=== PATIENT | male | born 1985 | race Caucasian/White ===

== ENCOUNTER 2023-08-09 20:04 | Emergency (ER) | payer OTHER, SELFPAY ==
[2023-08-09 20:10] VITALS: BP 143/94
[2023-08-09] MEDS: NSS 1000 IV (20:42)
--- NOTE | 2023-08-09 20:47 | ED.GENMED ---
History of Present Illness
<Sina Selby MD - Last Filed: 08/09/23 20:49>
General
Chief Complaint: Fainting/Passed Out
Source: patient and family
Exam Limitations: none
Time Seen by Provider: 08/09/23 20:29
Travel History
Have you had any contact with someone who has COVID-19?: No
Do you have any symptoms of coronavirus? Fever > 100 degrees, chills, cough, shortness of breath, sore throat, loss of taste or smell, muscle aches, or headache?: No
History of Present Illness
History of Present Illness:
38-year-old male with relatively sudden onset about 2 PM of nausea lightheadedness. Got up from his work chair went to the door felt more nauseous diaphoretic slid down to the floor. He then got up went back to his dad's with a recurrent episode.
No chest pain shortness of breath pleuritic pain no heart racing. Since then he has just felt slightly off generally weak dizzy and lightheaded. Denies other complaints
Past History
<Sina Selby MD - Last Filed: 08/09/23 20:49>
Past History
ED Past Medical History: None
Review of Systems
<Sina Selby MD - Last Filed: 08/09/23 20:49>
Review of Systems
All Other Systems: Not applicable
Constitutional: Denies fever
Respiratory: Denies cough
Cardiac: Denies chest pain or palpitations
Phy Exam
<Sina Selby MD - Last Filed: 08/09/23 20:49>
Physical Exam
Physical Exam:
GENERAL: Alert and oriented in no apparent distress
EYE: Orbits normal.
NECK: Supple, no significant adenopathy.
ENT: Pharynx without erythema
CARDIAC: Regular rate and rhythm without any obvious murmurs.
LUNGS: Clear breath sounds,normal
ABDOMEN: Soft, without focal tenderness or distention
NEUROLOGICAL: Alert and oriented , grossly non-focal
SKIN: Warm and dry, no rash or lesion, no discoloration, skin intact.
MUSCULOSKELETAL: No edema,no deformity.Good color
PSYCH: Normal and appropriate interaction.
Course
<Sina Selby MD - Last Filed: 08/09/23 20:49>
Orders/Labs/Results
Orders:
Orders
08/09/23 20:07
EKG [Electrocardiogram (*1)] Urgent
Reason for Study: Syncope
EKG- Treatment ONCE
08/09/23 20:40
Cardiac Monitoring- Treatment ONCE
IV Insert/Care/Rem.- Treatment PRN
0.9% Sodium Chloride 1000 ml [Nss] 1,000 ml IV BOLUS
08/09/23 20:43
Complete Blood Count/With Diff Urgent
Comprehensive Metabolic Panel Urgent
D-Dimer Urgent
Troponin I Urgent
08/09/23 20:48
CT Head W/o Iv Contrast Urgent
Comment:
Reason For Exam: Dizziness/syncope
08/09/23 21:14
CT Chest Pe Study Urgent
Comment:
Reason For Exam: syncope pos dimer
Abnormal Lab Results
08/09/23
20:43
D-Dimer 0.59 H ug/mlFEU
(0.00-0.50)
Glucose 125 H mg/dl
(70-99)
08/09/23 20:43
08/09/23 20:43
Vital Signs
Initial and Last Documented VS:
Initial Vital Signs
Temp Pulse Resp BP Pulse Ox
97.7 F 106 17 143/94 96
08/09/23 20:10 08/09/23 20:10 08/09/23 20:10 08/09/23 20:10 08/09/23 20:10
Last Documented Vital Signs
Temp Pulse Resp BP Pulse Ox
97.7 F 66 16 119/72 95
08/09/23 20:10 08/09/23 23:52 08/09/23 23:52 08/09/23 23:52 08/09/23 23:52
<Salvatore Dougherty, DO - Last Filed: 08/11/23 22:03>
Orders/Labs/Results
Orders:
Orders
08/09/23 20:07
EKG [Electrocardiogram (*1)] Urgent
Reason for Study: Syncope
EKG- Treatment ONCE
08/09/23 20:40
Cardiac Monitoring- Treatment ONCE
IV Insert/Care/Rem.- Treatment PRN
0.9% Sodium Chloride 1000 ml [Nss] 1,000 ml IV BOLUS
08/09/23 20:43
Complete Blood Count/With Diff Urgent
Comprehensive Metabolic Panel Urgent
D-Dimer Urgent
Troponin I Urgent
08/09/23 20:48
CT Head W/o Iv Contrast Urgent
Comment:
Reason For Exam: Dizziness/syncope
08/09/23 21:14
CT Chest Pe Study Urgent
Comment:
Reason For Exam: syncope pos dimer
Abnormal Lab Results
08/09/23
20:43
D-Dimer 0.59 H ug/mlFEU
(0.00-0.50)
Glucose 125 H mg/dl
(70-99)
08/09/23 20:43
08/09/23 20:43
Vital Signs
Initial and Last Documented VS:
Initial Vital Signs
Temp Pulse Resp BP Pulse Ox
97.7 F 106 17 143/94 96
08/09/23 20:10 08/09/23 20:10 08/09/23 20:10 08/09/23 20:10 08/09/23 20:10
Last Documented Vital Signs
Temp Pulse Resp BP Pulse Ox
97.7 F 66 16 119/72 95
08/09/23 20:10 08/09/23 23:52 08/09/23 23:52 08/09/23 23:52 08/09/23 23:52
<Sina Selby MD - Last Filed: 08/09/23 20:49>
*Pulse Oximetry
Patient hypoxic: no
*EKG
Interpreted by ED Provider?: Yes
Interpretation: normal
Comparison EKG: no comparison EKG present
Heart Rate: 67
Rate: normal
Rhythm: sinus
[place]: normal axis
Interval: normal interval
QRS Pattern: normal QRS
Ischemia: non-specific ST changes
<Salvatore Dougherty DO - Last Filed: 08/11/23 22:03>
*Critical Care Note
Total Time (30-74mins, 75-104mins- exclusive of procedures): Not Applicable
ED Attending Note
<Sina Selby MD - Last Filed: 08/09/23 20:49>
-
Portions of this chart may have been created with voice recognition software.� Occasional wrong word or��sound alike� substitutions may have occurred due to the inherent limitations of voice recognition software.
Discharge Plan
Departure
Patient Disposition: Home (Routine Discharge)
Date of Disposition: 08/09/23
Time of Disposition: 23:45
Patient with high blood pressure during this ER visit?: No
Discharge Problem:
Syncope, Dizziness
Instructions: Syncope (Fainting) (DC), Dizziness, Nonvertigo, (DC)
Referrals:
Melonie Florentino MD [Family Provider] - Follow up in 2-3 days
Interventions
Interventions:
*Risk Screen - Suicide Last Done: 08/09/23 20:10
*General Assessment Last Done: 08/09/23 20:10
*Neglect/Abuse Screening Last Done: 08/09/23 20:10
ED- Fall Risk Assessment Last Done: 08/09/23 23:53
*ED COVID-19 Vaccine History Last Done: 08/09/23 20:10
*Nursing Disposition Last Done: 08/09/23 23:53
ED- Cardiac Assessment Last Done: 08/09/23 22:33
ED- Neurological Assessment Last Done: 08/09/23 22:33
Discharge Date and Time
Discharge Date/Time: 08/10/23 00:02
Print Language: MOROCC[place]
[2023-08-09 20:50] LABS: % Basophils 0.5 % (0-2); % Eosinophils 1.1 % (0-6); % Immature Granulocytes 0.1 % (0-0.5); % Lymphocytes 22.3 % (20.5-51.1); % Monocytes 4.6 % (1.7-9.3); % Neutrophils 71.4 % (42.2-75.2); Absolute Eosinophils 0.1 10^3/uL (0-0.7); Absolute Lymphocytes 1.8 10^3/uL (1.2-3.4); Absolute Monocytes 0.4 10^3/uL (0.1-0.6); Absolute Neutrophils 5.6 10^3/uL (1.4-6.5); Hematocrit 42.7 % (39.0-52.0); Hemoglobin 15.6 g/dL (13.0-18.0); Mean Corp Hgb Conc. 36.5 g/dL (33.0-37.0); Mean Corpuscular Volume 84.7 fL (80.0-94.0); Mean Platelet Volume 8.9 fL (7.4-10.4); Nucleated Red Blood Cells % 0 % (-); Platelet Count 281 10^3/uL (130-400); Red Blood Cell Count 5.04 10^6/uL (4.70-6.10); Red Cell Dist. Width 11.8 % (11.5-14.5); White Blood Cell Count 7.9 10^3/uL (4.8-10.8)
[2023-08-09 21:00] VITALS: BP 120/79
[2023-08-09 21:04] LABS: ALT (SGPT) 43 U/L (0-50); AST (SGOT) 35 U/L (17-59); Albumin 4.8 g/dl (3.5-5.0); Alkaline Phosphatase 81 U/L (38-126); Blood Urea Nitrogen 16 mg/dl (9-20); Calcium 10.1 mg/dl (8.4-10.2); Carbon Dioxide 23 mmol/L (22-30); Chloride 103 mmol/L (98-107); D-Dimer 0.59 ug/mlFEU (0.00-0.50); Glucose 125 mg/dl (70-99); Potassium 4.3 mmol/L (3.5-5.1); Sodium 138 mmol/L (135-145); Total Bilirubin 0.9 mg/dl (0.2-1.3); Total Protein 7.8 g/dl (6.3-8.2); eGFR > 60.00
[2023-08-09 21:14] LABS: Troponin I < 0.012 ng/ml
[2023-08-09 23:00] VITALS: BP 119/72
[2023-08-09 23:52] VITALS: BP 119/72
== END 2023-08-10 00:02 | disposition home or self-care (01) ==
LOC: EMR 20:04
PROVIDERS: EMERGENCY PHYSICIAN Emergency Medicine; FAMILY PHYSICIAN Internal Medicine
DX: R42 Dizziness and giddiness (principal); R55 Syncope and collapse
CPT/HCPCS: 99285; 96360; 70450; 71275; 80053; 84484; 85025; 85379; 93005; Q9967